=== PATIENT | male | born 1950 | race Caucasian/White ===

== ENCOUNTER 2017-03-10 08:51 | Emergency (ER) | payer BC, MEDICARE ==
[2017-03-10] MEDS ORDERED: SODIUM CHLORIDE 0.9% 1,000 ML IV STA (09:22)
[2017-03-10] MEDS ORDERED: HYDROmorphone 1 MG/ML 1 ML SYRINGE IVP STA (09:22)
--- NOTE | 2017-03-10 09:26 | ED ---
General Adult HPI - General Chief complaint: Recheck/Abnormal Lab/Rx Stated complaint: rt leg pain, post op bypass 1 year ago Time Seen by Provider: 03/10/17 09:03 Source: patient, family, RN notes reviewed Mode of arrival: wheelchair Limitations: no limitations - History of Present Illness Initial comments: Patient is a pleasant 66-year-old male presenting to the emergency Department with right leg pain. Symptoms have been persistent for 3 days. Discomfort is not necessarily worse with movement or exertion. Patient has tried Aleve and muscle relaxers without improvement of symptoms. No trauma. Patient states discomfort starts in the right upper lateral thigh and moves to the right anterior lower thigh. Patient states originally there was some discomfort in the right lower back however that is no longer present. Patient states he did have aorta bifemoral bypass done 1 year ago. Patient states prior to that he did have leg pain however it was both legs and it was the entire leg and was exertional. Patient questions if he could have a muscle spasm. No lower leg pain. - Related Data Home Medications Medication Instructions Recorded Confirmed Aspirin 81 mg PO DAILY 03/10/17 03/10/17 Losartan Potassium [Losartan 100 mg PO DAILY 03/10/17 03/10/17 Potassium] Muscle Relaxer (Unknown) 2 tab PO ONCE 03/10/17 03/10/17 Simvastatin [Zocor] 20 mg PO HS 03/10/17 03/10/17 amLODIPine [Norvasc] 5 mg PO DAILY 03/10/17 03/10/17 Allergies Allergy/AdvReac Type Severity Reaction Status Date / Time Iodinated Contrast- Oral and Allergy Unknown Verified 03/10/17 09:39 IV Dye Review of Systems ROS Statement: Those systems with pertinent positive or pertinent negative responses have been documented in the HPI. ROS Other: All systems not noted in ROS Statement are negative. Constitutional: Denies: fever Eyes: Denies: eye pain ENT: Denies: ear pain Respiratory: Denies: cough Cardiovascular: Denies: chest pain Endocrine: Denies: fatigue Gastrointestinal: Denies: abdominal pain Genitourinary: Denies: dysuria Musculoskeletal: Denies: arthralgia Skin: Denies: rash Neurological: Denies: weakness Past Medical History Past Medical History: COPD, Hypertension History of Any Multi-Drug Resistant Organisms: None Reported Past Surgical History: Orthopedic Surgery Additional Past Surgical History / Comment(s): aortic bifemoral bypass, right shoulder Past Psychological History: No Psychological Hx Reported Smoking Status: Former smoker Past Alcohol Use History: Occasional Past Drug Use History: None Reported General Exam Limitations: no limitations General appearance: alert, in no apparent distress Head exam: Present: atraumatic Eye exam: Present: normal appearance, PERRL Neck exam: Present: normal inspection Respiratory exam: Present: normal lung sounds bilaterally Cardiovascular Exam: Present: regular rate, normal rhythm Expanded Peripheral pulses: 2+: Femoral (R), Femoral (L), Posterior Tibialis (R), Posterior Tibialis (L), Dorsalis Pedis (R), Dorsalis Pedis (L) GI/Abdominal exam: Present: soft. Absent: distended, tenderness Extremities exam: Present: normal inspection, full ROM, other (No significant tenderness in the area of complaint. No color change. No temperature change. Distally the extremity is neurovascular intact. Cap refill less than 2 seconds. ). Absent: tenderness, pedal edema, calf tenderness Back exam: Present: normal inspection. Absent: tenderness Neurological exam: Present: alert. Absent: motor sensory deficit Psychiatric exam: Present: normal affect, normal mood Skin exam: Present: normal color. Absent: rash (No rash in the area of discomfort.) Course Vital Signs 03/10/17 03/10/17 03/10/17 08:56 10:42 12:04 Temperature 97.8 F Pulse Rate 76 58 L 59 L Respiratory 17 16 20 Rate Blood Pressure 173/91 162/88 204/84 O2 Sat by Pulse 95 96 96 Oximetry 03/10/17 03/10/17 12:14 13:00 Temperature 98.0 F Pulse Rate 53 L 74 Respiratory 20 18 Rate Blood Pressure 184/74 178/84 O2 Sat by Pulse 95 96 Oximetry - Reevaluation(s) Reevaluation #1: 03/10/17 09:25 Pulses are easily palpated and equal bilateral. Medical Decision Making - Medical Decision Making Patient was evaluated having difficulty walking. Patient reevaluated and states no significant improvement despite pain medications. Patient and family were updated on results. With patient still having significant discomfort was recommended to stay for admission and orthopedic and medical evaluation. Despite a conversation with patient and spouse patient refuses to stay. Patient does demonstrate medical decision making. Patient is made aware that I do have concerns regarding has continued significant discomfort and that is my recommendation for admission is made. Patient is also advised he could receive further pain medication. Despite this patient continues to refuse admission. - Lab Data Result diagrams: 03/10/17 09:35 03/10/17 09:35 Lab Results 03/10/17 03/10/17 03/10/17 Range/Units 09:35 09:35 09:35 WBC 7.9 (3.8-10.6) k/uL RBC 5.38 (4.30-5.90) m/uL Hgb 16.5 (13.0-17.5) gm/dL Hct 48.3 (39.0-53.0) % MCV 89.7 (80.0-100.0) fL MCH 30.7 (25.0-35.0) pg MCHC 34.2 (31.0-37.0) g/dL RDW 14.5 (11.5-15.5) % Plt Count 247 (150-450) k/uL Neutrophils % 63 % Lymphocytes % 24 % Monocytes % 7 % Eosinophils % 3 % Basophils % 1 % Neutrophils # 5.0 (1.3-7.7) k/uL Lymphocytes # 1.9 (1.0-4.8) k/uL Monocytes # 0.5 (0-1.0) k/uL Eosinophils # 0.2 (0-0.7) k/uL Basophils # 0.1 (0-0.2) k/uL PT 9.8 (9.0-12.0) sec INR 1.0 (<1.2) APTT 24.7 (22.0-30.0) sec Sodium 143 (137-145) mmol/L Potassium 4.2 (3.5-5.1) mmol/L Chloride 107 (98-107) mmol/L Carbon Dioxide 25 (22-30) mmol/L Anion Gap 11 mmol/L BUN 13 (9-20) mg/dL Creatinine 0.92 (0.66-1.25) mg/dL Est GFR (MDRD) Af Amer >60 (>60 ml/min/1.73 sqM) Est GFR (MDRD) Non-Af >60 (>60 ml/min/1.73 sqM) Glucose 99 (74-99) mg/dL Calcium 9.8 (8.4-10.2) mg/dL Phosphorus 3.9 (2.5-4.5) mg/dL Magnesium 2.1 (1.6-2.3) mg/dL Total Bilirubin 0.5 (0.2-1.3) mg/dL AST 21 (17-59) U/L ALT 41 (21-72) U/L Alkaline Phosphatase 58 (38-126) U/L Total Protein 7.5 (6.3-8.2) g/dL Albumin 4.5 (3.5-5.0) g/dL - Radiology Data Radiology results: report reviewed (Ultrasound right leg negative for DVT. CT angiogram abdomen/aorta with rundown shows aortofemoral bypass graft why the pain. Asymmetrical soft tissue swelling and edema distal third right leg and ankle.), image reviewed (Lumbar x-ray shows mild degenerative disc disease. X- ray of the right femur shows osteoarthritic changes right femoral acetabular and femoral tibial.) Disposition Clinical Impression: Right leg pain Disposition: Left Against Medical Advice Instructions: Leg Pain (ED) Additional Instructions: Please follow-up with your vascular specialist tomorrow. Please also follow-up with orthopedics and your primary care physician tomorrow. Return for increased pain, fever, weakness, rash, worsening symptoms or other concerns. Referrals: William Hay MD [Primary Care Provider] - 1-2 days Gianni Martinez MD [Medical Doctor] - 1-2 days
[2017-03-10 10:00] LABS: Basophils # (A) 0.1 k/uL (0-0.2); Basophils % (A) 1 %; CH 31.8; CHCM 35.7; Eosinophils # (A) 0.2 k/uL (0-0.7); Eosinophils % (A) 3 %; HCT 48.3 % (39.0-53.0); HDW 2.67; HGB 16.5 gm/dL (13.0-17.5); Luc # (Auto) 0.17; Luc % (Auto) 2; Lymphocytes # (A) 1.9 k/uL (1.0-4.8); Lymphocytes % (A) 24 %; MCH 30.7 pg (25.0-35.0); MCHC 34.2 g/dL (31.0-37.0); MCV 89.7 fL (80.0-100.0); Mean Platelet Volume 7.4; Monocytes # (A) 0.5 k/uL (0-1.0); Monocytes % (A) 7 %; Neutrophils % (A) 63 %; RBC 5.38 m/uL (4.30-5.90); RDW 14.5 % (11.5-15.5); WBC 7.9 k/uL (3.8-10.6); WBC (Perox) 7.71
[2017-03-10 10:12] LABS: ALT 41 U/L (21-72); AST 21 U/L (17-59); Alkaline Phosphatase 58 U/L (38-126); Anion Gap 11 mmol/L; Blood Urea Nitrogen 13 mg/dL (9-20); Calcium 9.8 mg/dL (8.4-10.2); Carbon Dioxide 25 mmol/L (22-30); Chloride 107 mmol/L (98-107); Glucose 99 mg/dL (74-99); Magnesium 2.1 mg/dL (1.6-2.3); Non-African American GFR(MDRD) >60 (>60 ml/min/1.73 sqM); Phosphorous 3.9 mg/dL (2.5-4.5); Potassium 4.2 mmol/L (3.5-5.1); Sodium 143 mmol/L (137-145); Total Bilirubin 0.5 mg/dL (0.2-1.3); Total Protein 7.5 g/dL (6.3-8.2)
[2017-03-10 10:14] LABS: Partial Thromboplastin Time 24.7 sec (22.0-30.0); Prothrombin Time 9.8 sec (9.0-12.0)
--- NOTE | 2017-03-10 10:17 | XR ---
EXAMINATION TYPE: XR femur RT DATE OF EXAM: 03/10/2017 CLINICAL HISTORY: Right femur pain and cramping TECHNIQUE: Two views of the right femur are obtained. COMPARISON: None FINDINGS: There is no acute fracture or dislocation seen in the right femur. Mild degenerative ochoa es are seen in the femoral acetabular joint displayed as cephalad joint space narrowing and acetabula r sclerosis as well as marginal osteophytes of the femoral head and acetabular sourcil. The overlyin g soft tissue appears unremarkable. Mild osteoarthritic changes are also seen of the medial and later al compartments of the knee. IMPRESSION: 1. There is no acute fracture or dislocation in the right femur. 2. 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
--- NOTE | 2017-03-10 10:19 | XR ---
EXAMINATION TYPE: XR lumbar spine 2 or 3V DATE OF EXAM: 03/10/2017 CLINICAL HISTORY: Lumbar back pain for several days with no specified injury. TECHNIQUE: Frontal and lateral images of the lumbar spine are obtained. COMPARISON: None FINDINGS: Midline abdominal surgical clips span the L2-L3 vertebral levels. There are 5 lumbar type v ertebral bodies identified. The lumbar spine shows satisfactory alignment without evidence of acute fracture or dislocation. Vertebral body heights and alignment is maintained. Multilevel mild degenera tive changes are seen of the visualized thoracolumbar spine demonstrated as intervertebral disc space narrowing, small anterior osteophytes, endplate sclerosis and facet arthropathy. The overlying soft tissue appears unremarkable. IMPRESSION: 1. No acute fracture or dislocation is seen in the lumbar spine. 2. Mild degenerative disc disease of the visualized thoracolumbar spine.
[2017-03-10] MEDS ORDERED: diphenhydrAMINE 50 MG/ML 1 ML VIAL IVP STA (10:24)
[2017-03-10] MEDS ORDERED: methylPREDNISolone SOD SUCCI 125 MG/2 ML VIAL IV STA (10:24)
[2017-03-10] MEDS ORDERED: FAMOTIDINE 20 MG/2 ML VIAL IV STA (10:24)
[2017-03-10] MEDS ORDERED: RX INFO: IV CONTRAST WAS GIVEN 1 EACH MISC MISCELLANE PRN (10:25)
--- NOTE | 2017-03-10 10:49 | US ---
EXAMINATION TYPE: US venous doppler duplex LE RT DATE OF EXAM: 03/10/2017 9:23 AM COMPARISON: NONE CLINICAL HISTORY: Pain. SIDE PERFORMED: Right TECHNIQUE: The lower extremity deep venous system is examined utilizing real time linear array sonog rhea with graded compression, doppler sonography and color-flow sonography. VESSELS IMAGED: External Iliac Vein (EIV) Common Femoral Vein Deep Femoral Vein Greater Saphenous Vein * Femoral Vein Popliteal Vein Small Saphenous Vein * Proximal Calf Veins (* superficial vessels) Right Leg: Negative for DVT Grayscale, color doppler, spectral doppler imaging performed of the deep veins of the lower extremiti es. There is normal flow, compressibility, vascular waveforms. IMPRESSION: No sonographic evidence of deep venous thrombosis within the right lower extremity.
--- NOTE | 2017-03-10 12:10 | CT ---
EXAMINATION TYPE: CT angio abd aorta wo/w con DATE OF EXAM: 03/10/2017 COMPARISON: NONE HISTORY: 66-year-old male patient with aortobifemoral bypass graft one year ago and right-sided leg p ain. TECHNIQUE: Contiguous axial scanning of the abdomen and pelvis with bilateral lower extremity runoff performed with IV Contrast, patient injected with 100 mL of Omnipaque 350. Coronal/sagittal reconstru ctions performed. 3-D reconstructions generated on a dedicated independent workstation. CT DLP: 1021.70 mGycm Automated exposure control for dose reduction was used. FINDINGS: Only postcontrast images were acquired. Low-attenuation of the liver and mild hepatomegaly suggests hepatic steatosis. Heart is normal size without pericardial effusion. Dependent atelectasis at the lung bases without pl eural effusion. A small hiatal hernia. Gallbladder, right kidney, spleen, pancreas appear within normal limits. Bilateral adrenal nodularity likely represents underlying adrenal adenomas. A 1.4 cm hypodensity lateral left kidney likely repre sents a cortical cyst. No dilated small bowel, free fluid, or free air. Colonic diverticulosis with mild overall stool burden. No pericolonic inflammatory change. Mild circumferential bladder wall thickening could represent cystitis or chronic bladder wall hypertr ophy. Prostate gland mildly enlarged at 4.4 cm wide. No abnormal fluid collection in the pelvis. Vasculature: - Moderate atherosclerotic plaque and calcifications is present within the visualized lower thoracic aorta and upper abdominal aorta. - There is ectasia of the aorta at the thoracoabdominal junction 2.8 cm. - Additional ectasia of the upper abdominal aorta at 2.7 cm. - The celiac axis and SMA are patent. - Bilateral renal arteries are patent with an accessory renal artery on the left. - There are postsurgical changes of infrarenal abdominal aortic and biiliac interposition graft. Calc ifications and nonopacification of the eek infrarenal abdominal aorta. - There is reconstitution of flow on both sides of the distal common iliac arteries supplying the int ernal iliac arteries. - Both the aortic and bilateral iliac segments of the grafts are widely patent as are the anastomoses . Right: - There is atherosclerotic calcifications mildly narrowing the lower right superficial femoral artery . - Additional mild atherosclerotic calcifications of the distal tibioperoneal trunk prior to its bifur cation. - There is only mild narrowing at these levels without significant stenosis. - The peroneal artery becomes diminutive at the midcalf level but there is otherwise three-vessel run off demonstrated. - Soft tissue swelling right greater than left ankles and asymmetrically greater along the distal thi rd right leg. Left: - The arterial system is grossly patent with three-vessel runoff into the foot. Bones: Degenerative disc disease lower lumbar spine. No osseous destructive process. IMPRESSION: 1. INFRARENAL AORTOBIFEMORAL BYPASS GRAFT IS WIDELY PATENT. 2. ONLY MILD ATHEROSCLEROTIC NARROWING AT THE DISTAL RIGHT SUPERFICIAL FEMORAL ARTERY AND DISTAL RIGH T TIBIOPERONEAL TRUNK. WHILE THE PERONEAL ARTERY BECOMES DIMINUTIVE AT THE MID LEG LEVEL, THERE IS TH REE-VESSEL RUNOFF INTO THE FOOT. 3. THREE-VESSEL RUNOFF LEFT LOWER EXTREMITY WELL. 4. ASYMMETRIC SOFT TISSUE SWELLING AND EDEMA OF THE DISTAL THIRD RIGHT LEG AND ANKLE. 5. ADDITIONAL FINDINGS: HEPATIC STEATOSIS, ECTATIC UPPER ABDOMINAL AORTA, COLONIC DIVERTICULOSIS, AND MILD CIRCUMFERENTIAL BLADDER WALL THICKENING THAT COULD REPRESENT CHRONIC BLADDER WALL HYPERTROPHY O R CYSTITIS.
[2017-03-10] MEDS ORDERED: KETOROLAC 30 MG/ML 1 ML VIAL IVP STA (12:21)
[2017-03-10 14:38] VITALS: BP 172/70; PULSE 58; RESP 20; TEMP 97.6
== END 2017-03-10 14:30 | disposition left against medical advice (07) ==
LOC: EC 08:51
DX: M79.604 Pain in right leg (principal); M51.36 Other intervertebral disc degeneration, lumbar region; I10 Essential (primary) hypertension; Z53.29 Procedure and treatment not carried out because of patient's decision for other reasons; Z91.041 Radiographic dye allergy status; Z79.82 Long term (current) use of aspirin; Z79.899 Other long term (current) drug therapy; Z87.891 Personal history of nicotine dependence
CPT/HCPCS: 99284; 96374; 96375 ×4; 36415; 80053; 83735; 84100; 85025; 85610; 85730; 72100; 73552; 93971; 75635; J1200; J2930; Q9967; J1885; J1170

== ENCOUNTER → 2017-03-14 | Outpatient (CLI) | payer MEDICARE ==
--- NOTE | 2017-03-30 12:47 | P.ARTDOP ---
Arterial Doppler LOWER EXTREMITY ARTERIAL DOPPLER: DATE OF SERVICE: 03/14/2017 Reason for study: Right leg pain. Doppler waveforms: Multiphasic bilaterally throughout. Pulse volume recording: Normal configuration throughout. Pressure gradients: None. Ankle-brachial indices: 0.98 on the right and 0.97 on the left. Toe pressures: 138 on the right, 158 on the left Impression: Normal study.
== END | disposition home or self-care (01) ==
LOC: RADUSWWP 15:16
PROVIDERS: ATTEND Family Medicine
DX: I73.9 Peripheral vascular disease, unspecified (principal)
CPT/HCPCS: 93923

== ENCOUNTER → 2017-03-29 | Outpatient (CLI) | payer MEDICARE ==
[2017-03-29 10:25] LABS: Basophils # (A) 0.1 k/uL (0-0.2); Basophils % (A) 1 %; CHCM 33.1; Eosinophils # (A) 0.2 k/uL (0-0.7); Eosinophils % (A) 2 %; HCT 48.9 % (39.0-53.0); HDW 2.47; HGB 16.2 gm/dL (13.0-17.5); Luc # (Auto) 0.26; Luc % (Auto) 3; Lymphocytes # (A) 2.4 k/uL (1.0-4.8); Lymphocytes % (A) 26 %; MCH 31.1 pg (25.0-35.0); MCHC 33.1 g/dL (31.0-37.0); MCV 94.1 fL (80.0-100.0); Mean Platelet Volume 6.8; Monocytes # (A) 0.6 k/uL (0-1.0); Monocytes % (A) 6 %; Neutrophils # (A) 5.6 k/uL (1.3-7.7); Neutrophils % (A) 62 %; RBC 5.19 m/uL (4.30-5.90); RDW 13.2 % (11.5-15.5); WBC 9.1 k/uL (3.8-10.6); WBC (Perox) 8.73
[2017-03-29 13:17] LABS: Erythrocyte Sedimentation Rate 11 mm/hr (0-15)
--- NOTE | 2017-03-29 13:58 | NM ---
EXAMINATION TYPE: NM bone scan whole body DATE OF EXAM: 03/29/2017 COMPARISON: CTA aorta March 10, 2017 HISTORY: Low back pain, disc degeneration, right hip pain, right hip primary osteoarthritis rule out malignancy and lumbar spine radiculopathy all per order. Low back pain radiating down upper right leg into right knee per patient. Delayed whole-body scanning was performed following the injection of 25.6 mCi Tc 99m MDP. Images acq uired 3 hours post injection. Whole body images as well as spot images of the abdomen and pelvis are obtained in multiple projections. FINDINGS: There is no suspicious scintigraphic radiotracer uptake of the bone to suggest malignancy or other hale spicious abnormality. No suspicious focal uptake is seen in region of the low back or the right hip a nd femur on exam. Normal bladder uptake is present. IMPRESSION: As above
== END ==
LOC: RADNMMAIN 09:47
PROVIDERS: ATTEND Orthopaedic Surgery
DX: M51.17 Intervertebral disc disorders with radiculopathy, lumbosacral region (principal); M16.11 Unilateral primary osteoarthritis, right hip
CPT/HCPCS: 85652; 85025; 84165; 78306; 36415; A9503

== ENCOUNTER → 2017-03-30 | Outpatient (CLI) | payer MEDICARE ==
--- NOTE | 2017-03-30 13:10 | MR ---
EXAMINATION TYPE: MR lumbar spine wo con DATE OF EXAM: 03/30/2017 COMPARISON: NONE HISTORY: 66-year-old male with low back pain, intervertebral disc degeneration TECHNIQUE: Multiplanar, multisequence images of the lumbar spine were acquired. FINDINGS: Vertebral body heights are preserved and alignment is maintained. A couple tiny matrix hemangiomas within T12, L1, L5, and S1 vertebral bodies. No suspicious bone mar row replacement. Variable mild disc desiccation, to a greater extent at L5-S1 where there is moderate disc height loss and vacuum phenomenon. Bulging disks at multiple levels. Facet arthropathy mid to lower lumbar spine and some ligamentum flavum thickening in the mid lumbar s pine. Conus medullaris is normal. At T12-L1, no significant canal or foraminal stenosis. L1-L2, slight bulging disc eccentric towards the left. No significant canal or foraminal stenosis. At L2-L3, bulging disc eccentric to the left minimally narrowing the inferior foramen. No significant canal stenosis. At L3-L4, mild bulging disc with some ligamentum flavum thickening and facet degenerative change. Sheela nges result in mild left neuroforaminal stenosis without spinal canal stenosis. At L4-L5, there is bulging disc and facet arthropathy and ligamentum flavum thickening. Changes resul t in mild left neuroforaminal stenosis without significant spinal canal stenosis. At L5-S1, there is bulging disc with superimposed right paracentral disc protrusion that shows a smal l annular fissure. This closely approaches and may abut the traversing right S1 nerve root. Along wit h facet arthropathy, changes resulting in mild right neuroforaminal stenosis. No spinal canal stenosi s. Extensive atherosclerotic changes in the abdominal aorta with prior aortobiiliac bypass. IMPRESSION: 1. Mild multilevel degenerative disc disease, moderate at L5-S1. Additional facet arthropathy mid to lower lumbar spine. 2. There is a superimposed right paracentral disc protrusion at L5-S1 which closely approaches and se ems to abut the traversing right S1 nerve root. A tiny annular fissure is here as well. Mild right ne uroforaminal stenosis. 3. Mild left neural foraminal stenosis at both L3-L4 and L4-L5.
== END | disposition home or self-care (01) ==
LOC: RADMRIMAIN 11:12
PROVIDERS: ATTEND Orthopaedic Surgery
DX: M99.73 Connective tissue and disc stenosis of intervertebral foramina of lumbar region (principal); M51.17 Intervertebral disc disorders with radiculopathy, lumbosacral region; M46.96 Unspecified inflammatory spondylopathy, lumbar region
CPT/HCPCS: 72148

== ENCOUNTER → 2018-06-08 | Outpatient (CLI) | payer MEDICARE ==
[2018-06-08 08:55] LABS: Basophils # (A) 0.1 k/uL (0-0.2); Basophils % (A) 1 %; Eosinophils # (A) 0.3 k/uL (0-0.7); Eosinophils % (A) 4 %; HCT 47.8 % (39.0-53.0); HGB 15.5 gm/dL (13.0-17.5); Lymphocytes # (A) 2.2 k/uL (1.0-4.8); Lymphocytes % (A) 31 %; MCH 29.5 pg (25.0-35.0); MCHC 32.4 g/dL (31.0-37.0); Mean Platelet Volume 6.8; Monocytes # (A) 0.4 k/uL (0-1.0); Monocytes % (A) 5 %; Neutrophils # (A) 3.9 k/uL (1.3-7.7); Neutrophils % (A) 57 %; Platelet Count 224 k/uL (150-450); RBC 5.25 m/uL (4.30-5.90); RDW 13.5 % (11.5-15.5); WBC 6.9 k/uL (3.8-10.6)
[2018-06-08 16:37] LABS: Albumin 4.4 g/dL (3.80-4.90); Albumin/Globulin Ratio 2.75 (1.20-2.10); Anion Gap 5.6 mmol/L (4.00-12.00); Calcium 9.4 mg/dL (8.7-10.3); Carbon Dioxide 26.4 mmol/L (21.6-31.8); Globulin 1.6 g/dL (2.1-3.7); LDL Cholesterol,Calculated 81.4 mg/dL (0.0-131.0); Potassium 4.3 mmol/L (3.5-5.5); Total Bilirubin 0.5 mg/dL (0.2-1.2); VLDL Calculation 22.6 mg/dL (5.00-40.00)
[2018-06-08 16:51] LABS: Hemoglobin A1C 5.7 % (4.0-6.0)
== END ==
LOC: LABWHC1 07:58
PROVIDERS: ATTEND Family Medicine
DX: E78.5 Hyperlipidemia, unspecified (principal)
CPT/HCPCS: 36415; 80053; 80061; 82550; 83036; 85025